=== PATIENT | female | born 1970 | race Caucasian/White ===

== ENCOUNTER → 2018-05-12 | Day surgery (SDC) | payer OTHER ==
[~2018-05-12] MED LIST: HYDROmorphone 2 MG/ML VIAL IV PRN; IV RINGERS,LACTATED 1000ML 1,000 ML IV SCH; LIDOCAINE 1% PF 2 ML VIAL. ID PRN; LIDOCAINE 1% PF 2 ML VIAL. ONE; MIDAZOLAM HCL/PF 2 MG/2 ML VIAL. IV PRN; MORPHINE SULFATE 2 MG/ML VIAL. IV PRN; ONDANSETRON PF 4 MG/2 ML VIAL. IV PRN; PROCHLORPERAZINE 10 MG/2 ML VIAL. IV PRN; PROPOFOL 60 ML IV ONE; fentaNYL PF VIAL 100 MCG/2 ML VIAL IV PRN
[2018-05-12 08:26] LABS: U PREG PATIENT NEGATIVE (NEG)
[2018-05-12 09:44] VITALS: BP 104/65
--- NOTE | 2018-05-13 16:09 | PATHOLOGY ---
[facility] Accession Number: [id number] . 01 Material submitted: . PART A: DUODENAL BIOPSY PART B: RANDOM COLON . 01 Clinical history: . Abdominal pain . 02 Diagnosis: A. Small bowel, duodenum, biopsy: - Duodenal mucosa with mild chronic inflammation. - Normal villous architecture. . B. Colon, random biopsies: - Multiple fragments of colonic mucosa with no significant histopathologic diagnosis. (SKM:erlinda; 05/13/2018) QMS/05/13/2018 . 02 Electronically signed: . Pk Stephenson MD, Pathologist NPI- [id number] . 01 Gross description: . A. Received in formalin labeled "[place], duodenal BX, rule out celiac," are multiple segments of chao soft tissue measuring 2.2 x 0.4 x 0.2 cm in aggregate dimensions. The specimen is filtered and entirely submitted in cassette A1. . B. Received in formalin labeled "[place], random colon BX," are multiple segments of chao soft tissue measuring 1.9 x 0.6 x 0.1 cm in aggregate dimensions. The specimen is filtered and entirely submitted in cassette B1. (TSD; 05/12/2018) TOB/TOB . 02 Pathologist provided ICD-10: K29.80, R10.9 . 02 CPT . 703305, 370219 Specimen Comment: A courtesy copy of this report has been sent to Specimen Comment: [phone], . Specimen Comment: Report sent to / DR KHAN Specimen Comment: A duplicate report has been generated due to demographic updates. Performed at: [address], [place], [place] [id number] MD Shimon Fried MD Phone: [phone] Performed at: [address] [id number] MD Satish Odonnell MD Phone: [phone]
== END | disposition home or self-care (01) ==
LOC: SURG 08:16
PROVIDERS: ATTEND Internal Medicine Gastroenterology
DX: K63.89 Other specified diseases of intestine (principal); K31.89 Other diseases of stomach and duodenum; K64.0 First degree hemorrhoids; K29.80 Duodenitis without bleeding; R60.0 Localized edema; R00.2 Palpitations
CPT/HCPCS: 43239; 45380; 81025; 88305; J2704